=== PATIENT | male | born 1935 | race Two or more races ===

== ENCOUNTER 2021-12-15 14:32 | Inpatient (IN) | payer OTHER ==
[~2021-12-15] VITALS: Ht 175.3 cm; Wt 90.0 kg
[2021-12-15 15:39] LABS: Basophils # (auto) 0 10 ^3/uL (0-0.2); Basophils % (auto) 0.6 % (0.0-2.0); Eosinophils # (auto) 0.2 10 ^3/uL (0-0.8); Eosinophils % (auto) 2.7 % (0.0-7.0); Hematocrit 36.6 % (41.0-53.0); Hemoglobin 12.5 g/dL (13.5-17.5); Lymphocytes # (auto) 0.9 10 ^3/uL (0.4-5.4); Lymphocytes % (auto) 10.7 % (10.0-50.0); Mean Corpuscular Hemoglobin 32.4 pg (28.0-32.0); Mean Corpuscular Hgb Conc. 34.1 g/dL (32.0-36.0); Monocytes # (auto) 0.7 10 ^3/uL (0-1.3); Neutrophils # (auto) 6.2 10 ^3/uL (1.6-8.6); Red Blood Cells 3.86 10^6/uL (4.5-5.90); Red Cell Distribution Width 13.9 % (11.8-14.3); White Blood Cell 8.1 10^3/uL (4.4-10.8)
[2021-12-15 15:53] LABS: Albumin 3.5 g/dL (3.4-5.0); Calcium 9.2 mg/dL (8.5-10.1); Magnesium 3.4 mg/dL (1.6-2.6); Potassium 5.2 mmol/L (3.5-5.1)
[2021-12-15 15:59] LABS: BUN/Creatinine Ratio 15.5; Bilirubin, Total 0.4 mg/dL (0.2-1.0); Total Protein 7.3 g/dL (6.4-8.2)
[2021-12-15] MEDS ORDERED: MORPHINE SULFATE INJECTION 2 MG/ML SYRG IV ONE (21:15)
[2021-12-15] MEDS ORDERED: NITROGLYCERIN 0.4 MG SL TAB SL ONE (21:15)
[2021-12-15] MEDS ORDERED: ASPirin 81 mg TAB PO ONE (21:15)
[2021-12-15] MEDS ORDERED: SODIUM CHLORIDE 0.9% 500 ML IV ONE (21:15)
[2021-12-16] VITALS (10 sets, daily range): BP systolic 66–142; BP diastolic 21–74
[2021-12-16] MEDS ORDERED: ACETAMINOPHEN 325 MG TAB PO PRN (03:30)
[2021-12-16] MEDS ORDERED: ONDANSETRON HCL 4 MG/2 ML VIAL IV PRN (03:30)
[2021-12-16] MEDS ORDERED: cloNIDine HCL 0.1 MG TAB PO PRN (03:30)
[2021-12-16] MEDS ORDERED: ENOXAPARIN SOD 100 MG/1 ML SYRINGE SC ONE (03:30)
[2021-12-16] MEDS ORDERED: MORPHINE SULFATE INJECTION 2 MG/ML SYRG IV PRN (03:30)
[2021-12-16] MEDS: NITROGLYCERIN 0.4 MG SL TAB SL PRN ×2 (03:41→03:51)
[2021-12-16] MEDS ORDERED: ASPirin 81 mg TAB PO SCH (10:00)
[2021-12-16] MEDS ORDERED: PANTOPRAZOLE 40 MG TAB PO SCH (10:00)
[2021-12-16] MEDS ORDERED: LISINOPRIL 10 MG TAB PO SCH (10:00)
[2021-12-16] MEDS: SODIUM CHLORIDE 0.9% 1,000 ML IV SCH (13:00)
[2021-12-16] MEDS ORDERED: ASPI1TAB20 PO (16:58)
[2021-12-16] MEDS ORDERED: METO25TA36 PO (16:58)
[2021-12-16] MEDS ORDERED: FINA5TAB4 PO (16:58)
[2021-12-16] MEDS ORDERED: CHOL20007 PO (16:58)
[2021-12-16] MEDS ORDERED: ATO40T PO (16:58)
[2021-12-16] MEDS ORDERED: MULT-928 PO (16:58)
[2021-12-16] MEDS ORDERED: TAM04C PO (16:58)
[2021-12-16] MEDS: TICAGRELOR 90 MG TAB PO SCH (21:51)
[2021-12-16] MEDS: METOPROLOL TARTRATE 25 MG TAB PO SCH (21:51)
[2021-12-16] MEDS ORDERED: ATORVASTATIN 20 MG TAB PO SCH (22:00)
[2021-12-17] MEDS: SODIUM CHLORIDE 0.9% 1,000 ML IV SCH ×2 (02:37→14:25)
[2021-12-17 04:30] VITALS: BP 137/74
[2021-12-17 05:40] LABS: Basophils # (auto) 0 10 ^3/uL (0-0.2); Basophils % (auto) 0.7 % (0.0-2.0); Eosinophils # (auto) 0.3 10 ^3/uL (0-0.8); Eosinophils % (auto) 5.2 % (0.0-7.0); Hematocrit 33.3 % (41.0-53.0); Hemoglobin 11.5 g/dL (13.5-17.5); Lymphocytes % (auto) 14.8 % (10.0-50.0); Mean Corpuscular Hemoglobin 32.7 pg (28.0-32.0); Mean Corpuscular Hgb Conc. 34.5 g/dL (32.0-36.0); Mean Corpuscular Volume 94.9 fL (80.0-100.0); Monocytes # (auto) 0.7 10 ^3/uL (0-1.3); Monocytes % (auto) 11.4 % (0.0-12.0); Neutrophils # (auto) 4.4 10 ^3/uL (1.6-8.6); Neutrophils % (auto) 67.9 % (37.0-80.0); Nucleated Red Blood Cells % 0.1 %; Red Blood Cells 3.51 10^6/uL (4.5-5.90); White Blood Cell 6.5 10^3/uL (4.4-10.8)
[2021-12-17 05:49] LABS: Calcium 8.4 mg/dL (8.5-10.1); Potassium 5.4 mmol/L (3.5-5.1)
[2021-12-17 05:53] LABS: BUN/Creatinine Ratio 14.8
[2021-12-17 08:20] VITALS: BP 150/67
[2021-12-17] MEDS: METOPROLOL TARTRATE 25 MG TAB PO SCH (09:31)
[2021-12-17] MEDS: TICAGRELOR 90 MG TAB PO SCH (09:31)
[2021-12-17] MEDS ORDERED: SODIUM ZIRCONIUM CYCL 10 GM PAK PO SCH (10:00)
[2021-12-17] MEDS ORDERED: ASPirin 81 mg TAB PO SCH (10:00)
[2021-12-17] MEDS ORDERED: ENOXAPARIN SOD 30 MG/0.3 ML SYRINGE SC SCH (10:00)
[2021-12-17 13:00] VITALS: BP 146/73
[2021-12-17] MEDS ORDERED: TICA90TA PO (14:28)
[2021-12-17 17:00] VITALS: BP 148/58
[2021-12-17 18:20] VITALS: BP 148/58
[2021-12-17] MEDS ORDERED: METOPROLOL TARTRATE 25 MG TAB PO SCH (22:00)
[2021-12-17] MEDS ORDERED: ATORVASTATIN 20 MG TAB PO SCH (22:00)
== END 2021-12-17 19:15 | disposition home or self-care (01) | DRG 313 ==
LOC: ER 14:32 → TELE 12-16 03:30 → TELE-WESTW 12-16 11:59
PROVIDERS: ADMIT Nurse Practitioner; ATTEND Hospitalist
DX: R07.9 Chest pain, unspecified (principal); N17.9 Acute kidney failure, unspecified; I10 Essential (primary) hypertension; E78.5 Hyperlipidemia, unspecified; Z20.822 Contact with and (suspected) exposure to COVID-19; I25.10 Atherosclerotic heart disease of native coronary artery without angina pectoris; Z95.1 Presence of aortocoronary bypass graft; Z95.5 Presence of coronary angioplasty implant and graft
CPT/HCPCS: 36415; 71045; 80048; 80053; 83735; 84484; 85025; 87426; 93005; 93306; 96361; 96374; G0378

== ENCOUNTER 2022-07-05 06:44 | Day surgery (SDC) | payer OTHER ==
[~2022-07-05] VITALS: Ht 175.3 cm; Wt 88.5 kg
[~2022-07-05 06:44] MED LIST: ASPI1TAB20 PO; ATO40T PO; CHOL20007 PO; EZET-10 PO; FINA5TAB4 PO; METO25TA36 PO; MULT-928 PO; TAM04C PO
[2022-07-05] MEDS ORDERED: IODIXANOL 320MG/ML 100ML BTL IV ONE ×4 (07:27→09:05)
[2022-07-05] MEDS ORDERED: LIDOCAINE 2%HCL (LOCAL ANESTH.) INJ 10ml MDV ONE (07:27)
[2022-07-05] MEDS ORDERED: ANGIOMAX 250 MG VIAL IV ONE (07:56)
[2022-07-05] MEDS ORDERED: HEPARIN SODIUM (PORCINE) 5000 UNITS/ML 1ML VIAL ONE (07:56)
[2022-07-05] MEDS ORDERED: VERAPAMIL 2.5MG/ML INJ 2ML VIAL IV ONE (07:56)
[2022-07-05] MEDS ORDERED: MIDAZOLAM HCL 2MG/2ML 2ml VIAL (1mg/ml) ONE (07:57)
[2022-07-05] MEDS ORDERED: fentaNYL CITRATE 100 MCG/2 ML VL ONE (07:57)
[2022-07-05] MEDS ORDERED: SODIUM CHL 0.9% 50 ML ONE (07:57)
[2022-07-05] MEDS ORDERED: hydrALAZINE HCL 20 MG/ML VL ONE ×2 (08:58→09:12)
[2022-07-05] MEDS ORDERED: CLOPIDOGREL 300 MG TAB ONE (09:12)
[2022-07-05] MEDS ORDERED: ASPirin 325 MG TAB ONE (09:13)
[2022-07-05] MEDS ORDERED: ASPI-543 PO (12:33)
== END 2022-07-05 13:36 | disposition home or self-care (01) ==
LOC: CATH 06:44
PROVIDERS: ATTEND Internal Medicine Cardiovascular Disease
DX: R94.39 Abnormal result of other cardiovascular function study (principal); I25.10 Atherosclerotic heart disease of native coronary artery without angina pectoris; I12.0 Hypertensive chronic kidney disease with stage 5 chronic kidney disease or end stage renal disease; N18.9 Chronic kidney disease, unspecified; E78.5 Hyperlipidemia, unspecified; E03.9 Hypothyroidism, unspecified; Z79.02 Long term (current) use of antithrombotics/antiplatelets; Z81.8 Family history of other mental and behavioral disorders; Z20.822 Contact with and (suspected) exposure to COVID-19
CPT/HCPCS: 93458; C1725; C1769; C1874; C1887; C1894; C9600; J0360; J0583; J1644; J2001; J2250; J3010; Q9967; U0003; 93459; 99152; 99153

== ENCOUNTER 2024-03-19 18:15 | Inpatient (IN) | payer MEDICARE, OTHER ==
[~2024-03-19] VITALS: Ht 177.8 cm; Wt 90.0 kg
[~2024-03-19 18:15] MED LIST changes: +ASPI-543 PO; -ASPI1TAB20 PO; -ATO40T PO; +ATOR-507 PO; -TAM04C PO; +TAMS-35 PO
[2024-03-19 19:08] LABS: Basophils # (auto) 0 10 ^3/uL (0-0.2); Basophils % (auto) 0.2 % (0.0-2.0); Eosinophils # (auto) 0.1 10 ^3/uL (0-0.8); Eosinophils % (auto) 1.3 % (0.0-7.0); Hematocrit 27.6 % (41.0-53.0); Hemoglobin 9.2 g/dL (13.5-17.5); Lymphocytes # (auto) 0.3 10 ^3/uL (0.4-5.4); Lymphocytes % (auto) 3.4 % (10.0-50.0); Mean Corpuscular Hemoglobin 30.6 pg (28.0-32.0); Mean Corpuscular Hgb Conc. 33.3 g/dL (32.0-36.0); Mean Corpuscular Volume 91.8 fL (80.0-100.0); Monocytes # (auto) 0.3 10 ^3/uL (0-1.3); Monocytes % (auto) 3.8 % (0.0-12.0); Neutrophils # (auto) 8.3 10 ^3/uL (1.6-8.6); Neutrophils % (auto) 91.3 % (37.0-80.0); Nucleated Red Blood Cells % 0.7 %; Red Blood Cells 3.01 10^6/uL (4.5-5.90); Red Cell Distribution Width 16.3 % (11.8-14.3); White Blood Cell 9.1 10^3/uL (4.4-10.8)
[2024-03-19 19:25] LABS: Alanine Aminotransferase 67 U/L (7-40); Albumin 3.5 g/dL (3.2-4.8); Alkaline Phosphatase 185 U/L (46-116); Anion Gap 9 (5-15); Aspartate Aminotransferase 43 U/L (13-40); BUN/Creatinine Ratio 16.8 (10.0-20.0); Bilirubin, Total 0.3 mg/dL (0.2-1.0); Blood Urea Nitrogen 76 mg/dL (9-23); Calcium 9.1 mg/dL (8.7-10.4); Carbon Dioxide 15 mmol/L (20-30); Chloride 119 mmol/L (98-107); Glucose 131 mg/dL (74-106); Lipase 40 U/L (12-53); Sodium 143 mmol/L (136-145); Total Protein 6.3 g/dL (5.7-8.2)
[2024-03-19 19:28] LABS: Potassium 6.2 mmol/L (3.5-5.1)
[2024-03-19] MEDS: ALBUTEROL SULF 2.5 MG/0.5ML(0.5%) NEB SOLN NEB ONE (20:25)
[2024-03-19] MEDS: DEXTROSE (50%) 50ML SYRG IV ONE (20:38)
[2024-03-19] MEDS: InsuLIN REG 1unit/0.01ml Soln (100units/ml) IV ONE (20:39)
[2024-03-19] MEDS ORDERED: ALBUTEROL SULF 2.5 MG/0.5ML(0.5%) NEB SOLN NEB PRN (21:00)
[2024-03-19] MEDS ORDERED: ACETAMINOPHEN 325 MG TAB PO PRN (21:00)
[2024-03-19] MEDS ORDERED: ONDANSETRON HCL 4 MG/2 ML VIAL IV PRN (21:00)
[2024-03-19 21:06] VITALS: PULSE 70; RESP 20; O2SAT 98
[2024-03-19 21:15] VITALS: PULSE 63; RESP 17; O2SAT 96
[2024-03-19] MEDS: SODIUM ZIRCONIUM CYCL 10 GM PAK PO ONE (21:23)
[2024-03-19] MEDS: CALCIUM GLUC 1,000mg/50ml-NS 50 ML IV ONE (21:23)
[2024-03-19] MEDS: SODIUM BICARB 8.4% 50Meq/50ml SYR Vial IV ONE (21:24)
[2024-03-19] MEDS ORDERED: ATORVASTATIN 20 MG TAB PO SCH (22:00)
[2024-03-19] MEDS ORDERED: MORPHINE SULFATE INJ 2 MG/ml SYRG IV PRN (23:30)
[2024-03-19] MEDS ORDERED: NITROGLYCERIN 0.4 MG SL TAB SL PRN (23:30)
[2024-03-20 00:11] LABS: Base Excess -10.2 mmol/L (-2.0-2.0)
[2024-03-20] MEDS: SOD CHL 0.45% 1,000 ML IV ONE (01:32)
[2024-03-20] MEDS: levoFLOXacin 500MG 100 ML IV ONE (01:33)
[2024-03-20 05:40] LABS: Basophils # (auto) 0 10 ^3/uL (0-0.2); Basophils % (auto) 0.3 % (0.0-2.0); Eosinophils # (auto) 0 10 ^3/uL (0-0.8); Eosinophils % (auto) 0.3 % (0.0-7.0); Hematocrit 23.3 % (41.0-53.0); Hemoglobin 7.9 g/dL (13.5-17.5); Lymphocytes # (auto) 0.3 10 ^3/uL (0.4-5.4); Lymphocytes % (auto) 3.9 % (10.0-50.0); Mean Corpuscular Hemoglobin 30.9 pg (28.0-32.0); Mean Corpuscular Hgb Conc. 33.7 g/dL (32.0-36.0); Mean Corpuscular Volume 91.6 fL (80.0-100.0); Monocytes # (auto) 0.6 10 ^3/uL (0-1.3); Monocytes % (auto) 7.7 % (0.0-12.0); Neutrophils # (auto) 7.3 10 ^3/uL (1.6-8.6); Neutrophils % (auto) 87.8 % (37.0-80.0); Nucleated Red Blood Cells % 0.5 %; Red Blood Cells 2.55 10^6/uL (4.5-5.90); Red Cell Distribution Width 15.9 % (11.8-14.3); White Blood Cell 8.3 10^3/uL (4.4-10.8)
[2024-03-20 05:53] LABS: Alanine Aminotransferase 47 U/L (7-40); Alkaline Phosphatase 154 U/L (46-116); Anion Gap 10 (5-15); Aspartate Aminotransferase 35 U/L (13-40); BUN/Creatinine Ratio 16.7 (10.0-20.0); Bilirubin, Total 0.3 mg/dL (0.2-1.0); Blood Urea Nitrogen 75 mg/dL (9-23); Calcium 8.9 mg/dL (8.5-10.1); Carbon Dioxide 17 mmol/L (20-30); Chloride 119 mmol/L (98-107); Glucose 95 mg/dL (74-106); Sodium 146 mmol/L (136-145); Total Protein 5.4 g/dL (5.7-8.2)
[2024-03-20 06:10] LABS: Potassium 5.6 mmol/L (3.5-5.1)
[2024-03-20] MEDS: SODIUM ZIRCONIUM CYCL 10 GM PAK PO ONE ×2 (07:15→17:40)
[2024-03-20 07:39] VITALS: PULSE 63; RESP 17; O2SAT 96
[2024-03-20] MEDS: SOD CHL 0.45% 1,000 ML IV SCH (07:52)
[2024-03-20] MEDS ORDERED: CLOPIDOGREL BISULFATE 75 MG TAB PO SCH (10:00)
[2024-03-20] MEDS ORDERED: METOPROLOL SUCCINATE XL 50 MG TAB PO SCH (10:00)
[2024-03-20 11:31] VITALS: BP 127/67; PULSE 62; RESP 19; TEMP 98; O2SAT 100
[2024-03-20] MEDS: levoFLOXacin 250MG 50 ML IV SCH (13:00)
[2024-03-20] MEDS: LACTULOSE 20Gm/30ML SOLN PO ONE (14:30)
[2024-03-20 14:45] VITALS: PULSE 64; RESP 18; O2SAT 98
[2024-03-20] MEDS: ALBUTEROL SULF 2.5 MG/0.5ML(0.5%) NEB SOLN NEB ONE (14:55)
[2024-03-20] MEDS: SODIUM BICARB 50mEq/50ml Vial 150 ML in D5W 5% 1,000 ML IV ONE (15:00)
[2024-03-20] MEDS ORDERED: GABA-1308 PO (15:38)
[2024-03-20] MEDS ORDERED: ROPI0.5T26 PO (15:38)
[2024-03-20] MEDS ORDERED: HYDR-4924 PO (15:38)
[2024-03-20] MEDS ORDERED: CLOP75TA70 PO (15:38)
[2024-03-20] MEDS ORDERED: METO-289 PO (15:38)
[2024-03-20] MEDS ORDERED: MULT-733 PO (15:38)
[2024-03-20] MEDS ORDERED: LISI40TA16 PO (15:38)
[2024-03-20 16:56] LABS: Magnesium 2.1 mg/dL (1.6-2.6)
[2024-03-20 16:58] LABS: Phosphorus 5.4 mg/dL (2.4-5.1)
[2024-03-20 17:08] VITALS: BP 116/42; PULSE 84; RESP 19; TEMP 97.9; O2SAT 95
[2024-03-20] MEDS: FUROSEMIDE 100 MG/10ML VIAL IV ONE (17:40)
[2024-03-20] MEDS: CALCIUM GLUC 1,000mg/50ml-NS 50 ML IV ONE (17:40)
[2024-03-20] MEDS ORDERED: TAMSULOSIN HYDROCHLORIDE 0.4 MG CAP PO SCH (18:00)
[2024-03-20 18:34] LABS: Urine Bacteria FEW /hpf (None Seen); Urine Blood 1+ /uL (Negative); Urine Clarity Clear (Clear); Urine Color Colorless (Yellow); Urine Protein, UAD TRACE (Negative); Urine Specific Gravity 1.011 (1.001-1.035); Urine Urobilinogen Normal (Negative); Urine WBC 1 /hpf (0 - 3)
[2024-03-20 18:47] LABS: Protein, Urine 49.2 mg/dL (0.0-11.9)
[2024-03-20 18:50] LABS: Creatinine, Urine 47.94 mg/dL (30.0-125.0)
[2024-03-20 20:00] VITALS: PULSE 87; RESP 18; O2SAT 97
[2024-03-20 21:00] VITALS: BP 138/59; PULSE 82; RESP 18; TEMP 97.7; O2SAT 97
[2024-03-20] MEDS: SODIUM ZIRCONIUM CYCL 10 GM PAK PO SCH (22:09)
[2024-03-21] VITALS (9 sets, daily range): BP systolic 107–143; BP diastolic 51–62; PULSE 70–82; RESP 16–20; TEMP 97.3–98.6; O2SAT 93–96
[2024-03-21 06:17] LABS: Basophils # (auto) 0 10 ^3/uL (0-0.2); Basophils % (auto) 0.3 % (0.0-2.0); Eosinophils # (auto) 0.2 10 ^3/uL (0-0.8); Eosinophils % (auto) 2.2 % (0.0-7.0); Hematocrit 24.3 % (41.0-53.0); Hemoglobin 8.2 g/dL (13.5-17.5); Lymphocytes # (auto) 0.4 10 ^3/uL (0.4-5.4); Lymphocytes % (auto) 5.2 % (10.0-50.0); Mean Corpuscular Hemoglobin 30.6 pg (28.0-32.0); Mean Corpuscular Hgb Conc. 33.7 g/dL (32.0-36.0); Mean Corpuscular Volume 90.8 fL (80.0-100.0); Monocytes # (auto) 0.8 10 ^3/uL (0-1.3); Monocytes % (auto) 9.7 % (0.0-12.0); Neutrophils # (auto) 6.9 10 ^3/uL (1.6-8.6); Neutrophils % (auto) 82.6 % (37.0-80.0); Nucleated Red Blood Cells % 0.5 %; Red Blood Cells 2.68 10^6/uL (4.5-5.90); Red Cell Distribution Width 15.8 % (11.8-14.3); White Blood Cell 8.4 10^3/uL (4.4-10.8)
[2024-03-21 06:34] LABS: Chloride 114 mmol/L (98-107); Potassium 5.1 mmol/L (3.5-5.1); Sodium 145 mmol/L (136-145)
[2024-03-21 06:35] LABS: Anion Gap 9 (5-15); Calcium 9.2 mg/dL (8.7-10.4); Carbon Dioxide 22 mmol/L (20-30)
[2024-03-21 06:40] LABS: BUN/Creatinine Ratio 15.4 (10.0-20.0); Blood Urea Nitrogen 70 mg/dL (9-23); Glucose 82 mg/dL (74-106)
[2024-03-21] MEDS: SODIUM BICARB 8.4% 50Meq/50ml SYR Vial IV ONE (08:14)
[2024-03-21] MEDS: FUROSEMIDE 100 MG/10ML VIAL IV ONE (09:30)
[2024-03-21] MEDS: FUROSEMIDE 100 MG/10ML VIAL IV SCH (10:00)
[2024-03-21] MEDS: TAMSULOSIN HYDROCHLORIDE 0.4 MG CAP PO SCH (15:41)
[2024-03-21] MEDS ORDERED: PATIENTS OWN MEDICATION (Atorvastatin Calcium (Lipitor) 1 TAB) PO SCH (18:00)
[2024-03-21] MEDS: ATORVASTATIN 20 MG TAB PO SCH (21:59)
[2024-03-21] MEDS: hydrOXYzine 25 MG TAB or CAP PO SCH (21:59)
[2024-03-21] MEDS: GABAPENTIN 100 MG CAP PO SCH (21:59)
[2024-03-21] MEDS ORDERED: HYDROXYZINE HCL 25 MG PO SCH (22:00)
[2024-03-21] MEDS: ROPINIROLE HYDROCHLORIDE 0.5 MG PO SCH (22:00)
[2024-03-22] VITALS (12 sets, daily range): BP systolic 86–110; BP diastolic 39–62; PULSE 65–90; RESP 14–18; TEMP 96.8–98.6; O2SAT 61–99
[2024-03-22 06:55] LABS: Chloride 110 mmol/L (98-107); Potassium 4.3 mmol/L (3.5-5.1); Sodium 144 mmol/L (136-145)
[2024-03-22 06:56] LABS: Anion Gap 10 (5-15); Calcium 9.2 mg/dL (8.7-10.4); Carbon Dioxide 24 mmol/L (20-30)
[2024-03-22 07:01] LABS: BUN/Creatinine Ratio 14.5 (10.0-20.0); Blood Urea Nitrogen 73 mg/dL (9-23); Glucose 79 mg/dL (74-106)
[2024-03-22 08:31] LABS: Basophils # (auto) 0 10 ^3/uL (0-0.2); Basophils % (auto) 0.5 % (0.0-2.0); Eosinophils # (auto) 0.2 10 ^3/uL (0-0.8); Monocytes # (auto) 0.8 10 ^3/uL (0-1.3); Monocytes % (auto) 12.1 % (0.0-12.0); Nucleated Red Blood Cells % 0.8 %; Red Cell Distribution Width 15.8 % (11.8-14.3)
[2024-03-22 08:34] LABS: Eosinophils % (auto) 3.3 % (0.0-7.0); Hematocrit 24.6 % (41.0-53.0); Hemoglobin 8.3 g/dL (13.5-17.5); Lymphocytes # (auto) 0.6 10 ^3/uL (0.4-5.4); Lymphocytes % (auto) 8.4 % (10.0-50.0); Mean Corpuscular Hemoglobin 30.6 pg (28.0-32.0); Mean Corpuscular Hgb Conc. 33.7 g/dL (32.0-36.0); Mean Corpuscular Volume 90.9 fL (80.0-100.0); Neutrophils % (auto) 75.7 % (37.0-80.0); Red Blood Cells 2.71 10^6/uL (4.5-5.90); White Blood Cell 6.6 10^3/uL (4.4-10.8)
[2024-03-22] MEDS: METOPROLOL SUCCINATE XL 50 MG TAB PO SCH (09:39)
[2024-03-22] MEDS ORDERED: PATIENTS OWN MEDICATION (Lisinopril 40 MG) PO SCH (10:00)
[2024-03-22] MEDS ORDERED: LISINOPRIL 20 MG TAB PO SCH (10:00)
[2024-03-22] MEDS: FINASTERIDE 5 MG TAB PO SCH (10:10)
[2024-03-22] MEDS: CLOPIDOGREL BISULFATE 75 MG TAB PO SCH (10:10)
[2024-03-22] MEDS: SODIUM CHLORIDE 0.9% 1,000 ML IV ONE (12:30)
[2024-03-22] MEDS: IPRATROPIUM BROM 0.5 MG/2.5ML INH SOL NEB ONE (17:50)
[2024-03-22] MEDS: ALBUTEROL SULF 2.5 MG/0.5ML(0.5%) NEB SOLN NEB ONE (17:50)
[2024-03-23] VITALS (10 sets, daily range): BP systolic 97–109; BP diastolic 40–68; PULSE 64–94; RESP 18–21; TEMP 97.2–98.6; O2SAT 94–98
[2024-03-23 07:04] LABS: Chloride 110 mmol/L (98-107); Potassium 3.9 mmol/L (3.5-5.1); Sodium 143 mmol/L (136-145)
[2024-03-23 07:05] LABS: Anion Gap 10 (5-15); Calcium 8.9 mg/dL (8.5-10.1); Carbon Dioxide 23 mmol/L (20-30)
[2024-03-23 07:10] LABS: Glucose 97 mg/dL (74-106)
[2024-03-23 07:11] LABS: BUN/Creatinine Ratio 13.9 (10.0-20.0); Blood Urea Nitrogen 75 mg/dL (9-23)
[2024-03-23 11:06] LABS: Basophils # (auto) 0 10 ^3/uL (0-0.2); Eosinophils # (auto) 0.3 10 ^3/uL (0-0.8); Hematocrit 22.8 % (41.0-53.0); Hemoglobin 7.6 g/dL (13.5-17.5); Lymphocytes # (auto) 0.6 10 ^3/uL (0.4-5.4); Monocytes # (auto) 0.7 10 ^3/uL (0-1.3); Nucleated Red Blood Cells % 0.5 %
[2024-03-23 11:10] LABS: Basophils % (auto) 0.3 % (0.0-2.0); Lymphocytes % (auto) 8.2 % (10.0-50.0); Mean Corpuscular Hemoglobin 30.5 pg (28.0-32.0); Mean Corpuscular Hgb Conc. 33.3 g/dL (32.0-36.0); Mean Corpuscular Volume 91.7 fL (80.0-100.0); Monocytes % (auto) 9.2 % (0.0-12.0); Neutrophils # (auto) 5.8 10 ^3/uL (1.6-8.6); Neutrophils % (auto) 78.3 % (37.0-80.0); Red Blood Cells 2.49 10^6/uL (4.5-5.90); Red Cell Distribution Width 15.7 % (11.8-14.3); White Blood Cell 7.4 10^3/uL (4.4-10.8)
[2024-03-23 11:42] LABS: Alanine Aminotransferase 47 U/L (7-40); Alkaline Phosphatase 143 U/L (46-116); Anion Gap 11 (5-15); Aspartate Aminotransferase 62 U/L (13-40); BUN/Creatinine Ratio 14.9 (10.0-20.0); Bilirubin, Total 0.5 mg/dL (0.2-1.0); Calcium 8.9 mg/dL (8.5-10.1); Carbon Dioxide 23 mmol/L (20-30); Chloride 110 mmol/L (98-107); Glucose 93 mg/dL (74-106); Potassium 3.8 mmol/L (3.5-5.1); Sodium 144 mmol/L (136-145); Total Protein 5.4 g/dL (5.7-8.2)
[2024-03-23 12:02] LABS: Blood Urea Nitrogen 81 mg/dL (9-23)
[2024-03-23] MEDS: GABAPENTIN 100 MG CAP PO SCH (15:14)
[2024-03-24] VITALS (9 sets, daily range): BP systolic 84–117; BP diastolic 40–56; PULSE 54–102; RESP 16–20; TEMP 97.6–98.8; O2SAT 94–100
[2024-03-24 06:54] LABS: Basophils # (auto) 0 10 ^3/uL (0-0.2); Eosinophils # (auto) 0.3 10 ^3/uL (0-0.8); Hemoglobin 7.4 g/dL (13.5-17.5); Lymphocytes # (auto) 0.6 10 ^3/uL (0.4-5.4); Mean Corpuscular Hemoglobin 30.7 pg (28.0-32.0); Neutrophils # (auto) 5.4 10 ^3/uL (1.6-8.6); Nucleated Red Blood Cells % 0.2 %; White Blood Cell 7.1 10^3/uL (4.4-10.8)
[2024-03-24 06:56] LABS: Basophils % (auto) 0.4 % (0.0-2.0); Eosinophils % (auto) 4.2 % (0.0-7.0); Hematocrit 21.9 % (41.0-53.0); Lymphocytes % (auto) 8.2 % (10.0-50.0); Mean Corpuscular Hgb Conc. 33.7 g/dL (32.0-36.0); Mean Corpuscular Volume 91.2 fL (80.0-100.0); Monocytes # (auto) 0.8 10 ^3/uL (0-1.3); Monocytes % (auto) 10.9 % (0.0-12.0); Neutrophils % (auto) 76.3 % (37.0-80.0); Red Blood Cells 2.41 10^6/uL (4.5-5.90); Red Cell Distribution Width 15.4 % (11.8-14.3)
[2024-03-24 07:09] LABS: Alanine Aminotransferase 67 U/L (7-40); Alkaline Phosphatase 153 U/L (46-116); Anion Gap 11 (5-15); Aspartate Aminotransferase 91 U/L (13-40); BUN/Creatinine Ratio 16.1 (10.0-20.0); Bilirubin, Total 0.4 mg/dL (0.2-1.0); Calcium 8.9 mg/dL (8.5-10.1); Carbon Dioxide 23 mmol/L (20-30); Chloride 109 mmol/L (98-107); Glucose 92 mg/dL (74-106); Potassium 3.6 mmol/L (3.5-5.1); Sodium 143 mmol/L (136-145); Total Protein 5.3 g/dL (5.7-8.2)
[2024-03-24 07:45] LABS: Blood Urea Nitrogen 89 mg/dL (9-23)
[2024-03-24] MEDS ORDERED: EPOETIN ALFA-EPBX 10,000 UNIT/1ML VIAL SC SCH (10:30)
[2024-03-24] MEDS: SODIUM CHLORIDE 0.9% 500 ML IV ONE (12:30)
[2024-03-24] MEDS: GABAPENTIN 100 MG CAP PO SCH (22:36)
[2024-03-25] VITALS (26 sets, daily range): BP systolic 79–116; BP diastolic 41–67; PULSE 50–68; RESP 11–22; TEMP 97.6–98.4; O2SAT 94–100
[2024-03-25] MEDS ORDERED: SODIUM CHLORIDE 0.9% 500 ML IV ONE (05:45)
[2024-03-25 06:57] LABS: Basophils # (auto) 0 10 ^3/uL (0-0.2); Lymphocytes # (auto) 0.5 10 ^3/uL (0.4-5.4); Lymphocytes % (auto) 7.6 % (10.0-50.0); Monocytes # (auto) 0.6 10 ^3/uL (0-1.3); Nucleated Red Blood Cells % 0.2 %; Red Blood Cells 2.23 10^6/uL (4.5-5.90)
[2024-03-25] MEDS ORDERED: SODIUM CHL 0.9% 1000 ML BAG XX ONE (07:00)
[2024-03-25 07:02] LABS: Basophils % (auto) 0.4 % (0.0-2.0); Eosinophils # (auto) 0.3 10 ^3/uL (0-0.8); Eosinophils % (auto) 5.3 % (0.0-7.0); Hematocrit 20.6 % (41.0-53.0); Mean Corpuscular Hemoglobin 31.3 pg (28.0-32.0); Mean Corpuscular Volume 92.2 fL (80.0-100.0); Monocytes % (auto) 9.2 % (0.0-12.0); Neutrophils % (auto) 77.5 % (37.0-80.0); Red Cell Distribution Width 15.6 % (11.8-14.3); White Blood Cell 6.4 10^3/uL (4.4-10.8)
[2024-03-25 07:09] LABS: Alanine Aminotransferase 64 U/L (7-40); Alkaline Phosphatase 147 U/L (46-116); Anion Gap 12 (5-15); BUN/Creatinine Ratio 14.9 (10.0-20.0); Calcium 8.9 mg/dL (8.5-10.1); Carbon Dioxide 21 mmol/L (20-30); Chloride 109 mmol/L (98-107); Glucose 72 mg/dL (74-106); Potassium 3.8 mmol/L (3.5-5.1); Sodium 142 mmol/L (136-145)
[2024-03-25] MEDS: ALBUTEROL SULF 2.5 MG/0.5ML(0.5%) NEB SOLN NEB PRN (07:09)
[2024-03-25 07:11] LABS: Albumin 2.9 g/dL (3.2-4.8); Aspartate Aminotransferase 74 U/L (13-40); Bilirubin, Total 0.3 mg/dL (0.2-1.0); Total Protein 5.2 g/dL (5.7-8.2)
[2024-03-25 07:15] LABS: Blood Urea Nitrogen 77 mg/dL (9-23)
[2024-03-25 08:59] LABS: INR 1.16 (0.9-1.15); Partial Thromboplastin Time 28.1 SEC (24.5-34.5); Prothrombin Time 12.2 sec (9.3-11.8)
[2024-03-25 09:53] LABS: Hepatitis B Surface Antigen Negative (Negative)
[2024-03-25 10:15] LABS: Hepatitis A Ab IgM Negative; Hepatitis B Core IgM Negative
[2024-03-25 10:16] LABS: Hepatitis C Antibody Negative (Negative)
[2024-03-25] MEDS: LIDOCAINE 2%HCL (LOCAL ANESTH.) INJ 20ML MDV ONE (13:21)
[2024-03-25 13:26] LABS: % Iron Saturation 25.8 % (20-55)
[2024-03-25] MEDS: fentaNYL CITRATE 100 MCG/2 ML VL ONE (13:46)
[2024-03-25] MEDS: MIDAZOLAM HCL 2MG/2ML 2ml VIAL (1mg/ml) ONE (13:46)
[2024-03-25] MEDS ORDERED: CLINDAMYCIN 600MG IV 50 ML IV ONE (14:15)
[2024-03-25] MEDS: ceFAZolin 1GM/50ML 0 ML IV ONE (14:35)
[2024-03-25] MEDS ORDERED: HEPARIN SODIUM (PORCINE) 5000 UNITS/ML 1ML VIAL ONE (14:41)
[2024-03-25] MEDS ORDERED: ALBUMIN 25% 100 ML IV ONE ×2 (15:45)
[2024-03-25] MEDS ORDERED: NOREPINEPHRINE 8 MG/250ML KIT 250 ML IV SCH (17:00)
[2024-03-26] VITALS (10 sets, daily range): BP systolic 97–122; BP diastolic 50–62; PULSE 57–79; RESP 17–18; TEMP 97.5–98.5; O2SAT 90–99
[2024-03-26] MEDS ORDERED: SODIUM CHL 0.9% 1000 ML BAG XX ONE (04:15)
[2024-03-26 06:14] LABS: Basophils # (auto) 0 10 ^3/uL (0-0.2); Eosinophils # (auto) 0.2 10 ^3/uL (0-0.8); Hemoglobin 7.3 g/dL (13.5-17.5); Lymphocytes # (auto) 0.3 10 ^3/uL (0.4-5.4); Lymphocytes % (auto) 5.9 % (10.0-50.0); Mean Corpuscular Hgb Conc. 33.5 g/dL (32.0-36.0); Monocytes # (auto) 0.1 10 ^3/uL (0-1.3); Neutrophils # (auto) 4.6 10 ^3/uL (1.6-8.6)
[2024-03-26 06:19] LABS: Basophils % (auto) 0.3 % (0.0-2.0); Eosinophils % (auto) 3.6 % (0.0-7.0); Hematocrit 21.7 % (41.0-53.0); Mean Corpuscular Hemoglobin 30.8 pg (28.0-32.0); Monocytes % (auto) 2.2 % (0.0-12.0); Nucleated Red Blood Cells % 0.3 %; Red Blood Cells 2.36 10^6/uL (4.5-5.90); Red Cell Distribution Width 15.3 % (11.8-14.3); White Blood Cell 5.2 10^3/uL (4.4-10.8)
[2024-03-26 06:39] LABS: Alanine Aminotransferase 56 U/L (7-40); Albumin 3.4 g/dL (3.2-4.8); Alkaline Phosphatase 133 U/L (46-116); Anion Gap 8 (5-15); Aspartate Aminotransferase 51 U/L (13-40); Bilirubin, Total 0.4 mg/dL (0.2-1.0); Carbon Dioxide 27 mmol/L (20-30); Chloride 108 mmol/L (98-107); Glucose 70 mg/dL (74-106); Potassium 3.7 mmol/L (3.5-5.1); Sodium 143 mmol/L (136-145); Total Protein 5.5 g/dL (5.7-8.2)
[2024-03-26 06:41] LABS: Blood Urea Nitrogen 42 mg/dL (9-23)
[2024-03-26 08:43] LABS: Platelet Estimate Decrea
[2024-03-26] MEDS ORDERED: METOPROLOL SUCCINATE XL 50 MG TAB PO SCH (10:00)
[2024-03-26] MEDS: METOPROLOL SUCCINATE XL 50 MG TAB PO SCH (10:00)
[2024-03-26] MEDS: LACTULOSE 20Gm/30ML SOLN PO ONE (11:00)
[2024-03-26] MEDS: MIDODRINE HCL 10 MG TAB PO SCH (13:09)
[2024-03-26 15:47] LABS: Basophils # (auto) 0 10 ^3/uL (0-0.2); Eosinophils # (auto) 0.2 10 ^3/uL (0-0.8); Hemoglobin 7.5 g/dL (13.5-17.5); Lymphocytes # (auto) 0.3 10 ^3/uL (0.4-5.4); Lymphocytes % (auto) 4.9 % (10.0-50.0); Monocytes # (auto) 0.6 10 ^3/uL (0-1.3); Nucleated Red Blood Cells % 0.2 %; White Blood Cell 6.3 10^3/uL (4.4-10.8)
[2024-03-26 15:49] LABS: Basophils % (auto) 0.4 % (0.0-2.0); Eosinophils % (auto) 3.8 % (0.0-7.0); Hematocrit 22.3 % (41.0-53.0); Mean Corpuscular Hemoglobin 30.9 pg (28.0-32.0); Mean Corpuscular Hgb Conc. 33.8 g/dL (32.0-36.0); Mean Corpuscular Volume 91.4 fL (80.0-100.0); Monocytes % (auto) 8.8 % (0.0-12.0); Neutrophils # (auto) 5.2 10 ^3/uL (1.6-8.6); Neutrophils % (auto) 82.1 % (37.0-80.0); Red Blood Cells 2.44 10^6/uL (4.5-5.90); Red Cell Distribution Width 15.5 % (11.8-14.3)
[2024-03-26 15:59] LABS: Chloride 108 mmol/L (98-107); Potassium 4.1 mmol/L (3.5-5.1); Sodium 144 mmol/L (136-145)
[2024-03-26 16:00] LABS: Anion Gap 7 (5-15); Calcium 9.3 mg/dL (8.5-10.1); Carbon Dioxide 29 mmol/L (20-30)
[2024-03-26 16:05] LABS: Blood Urea Nitrogen 38 mg/dL (9-23); Glucose 60 mg/dL (74-106)
[2024-03-26 19:05] LABS: INR 1.24 (0.9-1.15); Prothrombin Time 12.9 sec (9.3-11.8)
[2024-03-27] VITALS (12 sets, daily range): BP systolic 86–154; BP diastolic 47–73; PULSE 59–79; RESP 16–20; TEMP 97.5–98.3; O2SAT 90–100
[2024-03-27 06:29] LABS: Basophils # (auto) 0 10 ^3/uL (0-0.2); Basophils % (auto) 0.3 % (0.0-2.0); Eosinophils # (auto) 0.2 10 ^3/uL (0-0.8); Lymphocytes % (auto) 6.3 % (10.0-50.0); Monocytes # (auto) 0.7 10 ^3/uL (0-1.3); Monocytes % (auto) 9.8 % (0.0-12.0); Nucleated Red Blood Cells % 0.1 %
[2024-03-27 06:33] LABS: Eosinophils % (auto) 2.5 % (0.0-7.0); Hematocrit 21.9 % (41.0-53.0); Hemoglobin 7.2 g/dL (13.5-17.5); Lymphocytes # (auto) 0.4 10 ^3/uL (0.4-5.4); Mean Corpuscular Hemoglobin 30.4 pg (28.0-32.0); Mean Corpuscular Volume 92.3 fL (80.0-100.0); Neutrophils # (auto) 5.7 10 ^3/uL (1.6-8.6); Neutrophils % (auto) 81.1 % (37.0-80.0); Red Blood Cells 2.37 10^6/uL (4.5-5.90); Red Cell Distribution Width 15.8 % (11.8-14.3); White Blood Cell 7.1 10^3/uL (4.4-10.8)
[2024-03-27 06:45] LABS: Alanine Aminotransferase 50 U/L (7-40); Albumin 3.5 g/dL (3.2-4.8); Alkaline Phosphatase 133 U/L (46-116); Anion Gap 7 (5-15); Aspartate Aminotransferase 49 U/L (13-40); BUN/Creatinine Ratio 15.6 (10.0-20.0); Bilirubin, Total 0.6 mg/dL (0.2-1.0); Carbon Dioxide 28 mmol/L (20-30); Chloride 108 mmol/L (98-107); Glucose 99 mg/dL (74-106); Potassium 4.3 mmol/L (3.5-5.1); Sodium 143 mmol/L (136-145)
[2024-03-27 06:46] LABS: Total Protein 5.7 g/dL (5.7-8.2)
[2024-03-27 06:51] LABS: Blood Urea Nitrogen 51 mg/dL (9-23)
[2024-03-27] MEDS ORDERED: SODIUM CHL 0.9% 1000 ML BAG XX ONE (07:00)
[2024-03-27] MEDS: FUROSEMIDE 100 MG/10ML VIAL IV SCH (10:00)
[2024-03-27] MEDS: MIDODRINE HCL 10 MG TAB PO SCH (10:46)
[2024-03-27] MEDS: ALBUMIN 25% 100 ML IV PRN (11:30)
[2024-03-27] MEDS ORDERED: EPOETIN ALFA-EPBX 10,000 UNIT/1ML VIAL SC ONE (21:00)
[2024-03-28 07:07] LABS: Anti-Nuclear Antibody Direct Negative (Negative)
[2024-03-28 08:06] LABS: Haptoglobin 169 mg/dL (38-329)
[2024-03-28 08:49] LABS: Hepatitis B Surface Antibody Negative (Negative)
[2024-03-28 09:01] LABS: Hepatitis B Surface Antigen Negative (Negative)
== END 2024-03-27 18:45 | DRG 673 ==
LOC: ER 18:15 → EDBD 18:15 → ER 21:03 → TELE 23:54 → TELE-CENTR 03-20 10:45
PROVIDERS: ADMIT Internal Medicine; ATTEND Internal Medicine
PROC: 30233N1 Transfusion of Nonautologous Red Blood Cells into Peripheral Vein, Percutaneous Approach (ICD-10-PCS; principal; 2024-03-25)
PROC: 0JH63XZ Insertion of Tunneled Vascular Access Device into Chest Subcutaneous Tissue and Fascia, Percutaneous Approach (ICD-10-PCS; 2024-03-25)
PROC: 02H633Z Insertion of Infusion Device into Right Atrium, Percutaneous Approach (ICD-10-PCS; 2024-03-25)
PROC: B5181ZA Fluoroscopy of Superior Vena Cava using Low Osmolar Contrast, Guidance (ICD-10-PCS; 2024-03-25)
PROC: B548ZZA Ultrasonography of Superior Vena Cava, Guidance (ICD-10-PCS; 2024-03-25)
PROC: 5A1D70Z Performance of Urinary Filtration, Intermittent, Less than 6 Hours Per Day (ICD-10-PCS; 2024-03-25)
PROC: 5A1D70Z Performance of Urinary Filtration, Intermittent, Less than 6 Hours Per Day (ICD-10-PCS; 2024-03-26)
DX: N17.9 Acute kidney failure, unspecified (principal); G93.41 Metabolic encephalopathy; J18.9 Pneumonia, unspecified organism; J96.01 Acute respiratory failure with hypoxia; E87.20 Acidosis, unspecified; I13.2 Hypertensive heart and chronic kidney disease with heart failure and with stage 5 chronic kidney disease, or end stage renal disease; D68.59 Other primary thrombophilia; E87.5 Hyperkalemia; N40.0 Benign prostatic hyperplasia without lower urinary tract symptoms; I48.91 Unspecified atrial fibrillation; N18.6 End stage renal disease; D69.6 Thrombocytopenia, unspecified; E78.5 Hyperlipidemia, unspecified; I25.10 Atherosclerotic heart disease of native coronary artery without angina pectoris; I50.9 Heart failure, unspecified; K74.60 Unspecified cirrhosis of liver; R04.0 Epistaxis; Z99.2 Dependence on renal dialysis; Z95.1 Presence of aortocoronary bypass graft; Z79.899 Other long term (current) drug therapy; Z79.82 Long term (current) use of aspirin
CPT/HCPCS: 36415; 36558; 36600; 70450; 70486; 71045; 72125; 76705; 76775; 76937; 77001; 78582; 80048; 80053; 80074; 81001; 81241; 82140; 82270; 82306; 82550; 82570; 82728; 82805; 82962; 83010; 83540; 83550; 83605; 83615; 83690; 83735; 83880; 84100; 84132; 84156; 84260; 84300; 84439; 84443; 84484; 85025; 85045; 85246; 85379; 85610; 85730; 86038; 86703; 86706; 86850; 86880; 86900; 86901; 86920; 87040; 87081; 87340; 90935; 93005; 93306; 94640; 96365; 96375; 97110; 97116; 97163; 99152; C1894; G0378; J1642; J1815; J1956; J2250; J3490; P9047